=== PATIENT | male | born 1965 | race Asian ===

== ENCOUNTER 2017-04-18 01:35 | Emergency (ER) | payer BC ==
[~2017-04-18] VITALS: Ht 175.3 cm; Wt 79.8 kg
[2017-04-18 01:50] VITALS: BP_SYST 130
[2017-04-18 02:44] VITALS: BP_SYST 130
== END 2017-04-18 02:44 | disposition home or self-care (01) ==
LOC: SED 01:35
DX: R06.6 Hiccough (principal); Z88.8 Allergy status to other drugs, medicaments and biological substances
CPT/HCPCS: 99283